=== PATIENT | female | born 1950 | race Caucasian/White ===

== ENCOUNTER 2017-07-01 15:49 | Observation (INO) | payer BC, MEDICARE ==
[2017-07-01] MEDS ORDERED: Aspirin 81 mg CHEW TAB* 81 MG TAB.CHEW PO ONE (16:52)
[2017-07-01] MEDS ORDERED: Ondansetron INJ* 2 MG/ML VIAL IV ONE (16:56)
[2017-07-01] MEDS ORDERED: NS 0.9% 1000 ML* 1,000 ML IV SCH (17:00)
[2017-07-01 17:16] LABS: ABS Basophils 0.1 10^3/ul (0-0.2); ABS Eosinophils 0.1 10^3/ul (0-0.6); ABS Lymphocytes 2.4 10^3/ul (1.0-4.8); ABS Monocytes 0.5 10^3/ul (0-0.8); ABS Neutrophils 3.8 10^3/ul (1.5-7.7); ABS Nucleated RBC 0 10^3/ul; Eosinophil % 0.8 % (0-6); Hematocrit 41 % (35-47); Hemoglobin 13.8 g/dl (12.0-16.0); Lymphocyte % 35.3 % (25-47); Mean Corpuscular HGB Conc 34 g/dl (31-36); Mean Corpuscular Hemoglobin 32 pg (27-31); Mean Corpuscular Volume 94 fL (80-97); Mean Platelet Volume 8.7 um3 (7.4-10.4); Nucleated Red Blood Cells % 0; Platelet Count 283 10^3/ul (150-450); Red Blood Count 4.38 10^6/ul (4.0-5.4); Red Cell Distribution Width 13 % (10.5-15); White Blood Count 6.9 10^3/ul (3.5-10.8)
[2017-07-01 17:24] LABS: INR 0.93 (0.77-1.02)
[2017-07-01 17:34] LABS: EGFR Non-African American 75.9 (>60)
--- NOTE | 2017-07-01 18:12 | RAD ---
INDICATION: Chest pain. COMPARISON: There are no prior studies available for comparison. TECHNIQUE: A portable view of the chest was obtained. FINDINGS: The heart is within normal limits in size. The lungs are clear. No pleural effusion is seen. There is a [id number] dorsal lumbar scoliosis convex toward the right in the dorsal region and toward the left in the lumbar region. IMPRESSION: NO EVIDENCE FOR ACUTE DISEASE.
[2017-07-01] MEDS ORDERED: Acetaminophen TAB* 325 MG PO PRN (18:53)
[2017-07-01] MEDS ORDERED: Ondansetron INJ* 2 MG/ML VIAL IV PRN (18:53)
[2017-07-01] MEDS ORDERED: Lidocaine 2% VISCOUS* 15 ML UDC PO ONE (18:57)
[2017-07-01] MEDS ORDERED: Al Hydrox/Mg Hydrox/Simet LIQ* 30 ML UDC PO ONE (18:57)
--- NOTE | 2017-07-01 19:25 | RAD ---
INDICATION: Midsternal chest pain. COMPARISON: There are no prior studies available for comparison. TECHNIQUE: Multiple real-time images of the right upper quadrant were obtained. FINDINGS: The gallbladder appear normal. No gallbladder wall thickening or pericholecystic fluid is present. No intra or extrahepatic ductal distention is present. The common bile duct measured 0.4 cm in diameter. The liver is normal in size without significant focal abnormality. The pancreas is partially obscured by overlying bowel gas. The right kidney is normal in size without evidence for hydronephrosis. IMPRESSION: NEGATIVE EXAM.
--- NOTE | 2017-07-01 19:30 | ED ---
Cristiano Maya Jennifer, scribed for Erich Abraham MD on 07/01/17 at 1647 . HPI Chest Pain - HPI Summary HPI Summary: The patient is a 66 year old female who presents with chest pain that began last night, went away, and then began again at about 14:00 today. The patient reports she thought it was initially indigestion and took Pepto-Bismol for it, which alleviated the symptoms. However, beginning at 14:00 today, the chest pain returned and radiated to her jaw, lasting about 30 minutes. She described the pain was a tightness rated 8/10 at its worst but denies pain in the ED now. She additionally complains of nausea and lightheadedness, as well as syncope and seizure when the IV was put in. The patient adds that she was supposed to see a embossing machine operator helper in a couple of weeks due to issues with her aortic valve and she has a history of on-off heart murmur. She denies ankle pain, as well as using aspirin. - History of Current Complaint Chief Complaint: EDChestPainROMI Time Seen by Provider: 07/01/17 16:35 Hx Obtained From: Patient, Family/Career Portals Teacher - Onset/Duration: Started Hours Ago - about 2-3 hours ago, Still Present Timing: Lasting Minutes - 30 minutes, then decreased Initial Severity: Moderate Current Severity: Mild Pain Intensity: 2 Pain Scale Used: 0-10 Numeric Chest Pain Location: Mid Sternal Chest Pain Radiates: Yes Chest Pain Radiates To:: Jaw Character: Tightness, Other: - Mackey like indigestion Aggravating Factor(s): Nothing Alleviating Factor(s): Nothing Associated Signs and Symptoms: Positive: Other: - chest pain radiating to jaw, nausea, lightheaded, syncope, seizure. NEGATIVE: ankle pain - Allergy/Home Medications Allergies/Adverse Reactions: Allergies Allergy/AdvReac Type Severity Reaction Status Date / Time No Known Allergies Allergy Verified 02/23/16 15:51 Home Medications: Home Medications Calcium Carbonate/Vitamin D3 [Calcium 600 + Vit D Tablet] 1 each PO DAILY [History Confirmed 07/01/17] PMH/Surg Hx/FS Hx/Imm Hx Endocrine/Hematology History: Denies: Hx Diabetes Cardiovascular History: Denies: Hx Hypertension - Cancer History Hx Chemotherapy: No Hx Radiation Therapy: No - Surgical History Surgery Procedure, Year, and Place: Fertility surgery (to open fallopian tubes) over 30 years ago. TUBAL . TONSILECTOMY Infectious Disease History: No Infectious Disease History: Denies: History Other Infectious Disease, Traveled Outside the [place] in Last 30 Days - Family History Known Family History: Positive: Cardiac Disease - Social History Alcohol Use: Occasionally Substance Use Type: Reports: None Smoking Status (MU): Never Smoked Tobacco Review of Systems Positive: Chest Pain Positive: Nausea Musculoskeletal: Negative - ankle pain Neurological: Other - Lightheaded, seizure Positive: Syncope All Other Systems Reviewed And Are Negative: Yes Physical Exam - Summary Physical Exam Summary: General: pale-appearing, no pain distress Skin: warm, color reflects adequate perfusion, dry Head: normal Eyes: EOMI, CLARA ENT: normal Neck: supple, nontender Respiratory: CTA, breath sounds present Cardiovascular: Bradycardic with some PVCs. Abdomen: soft, nontender Bowel: present Musculoskeletal: normal, strength/ROM intact Neurological: normal, sensory/motor intact, A&O x3 Psychological: affect/mood appropriate Triage Information Reviewed: Yes Vital Signs On Initial Exam: Initial Vitals Temp Pulse Resp BP Pulse Ox 99.0 F 52 16 181/77 100 07/01/17 15:51 07/01/17 15:51 07/01/17 15:51 07/01/17 15:51 07/01/17 15:51 Vital Signs Reviewed: Yes Diagnostics - Vital Signs Vital Signs Temp Pulse Resp BP Pulse Ox 07/01/17 15:51 99.0 F 52 16 181/77 100 - Laboratory Lab Results: Lab Results 07/01/17 07/01/17 07/01/17 Range/Units 17:00 17:00 17:00 WBC 6.9 (3.5-10.8) 10^3/ul RBC 4.38 (4.0-5.4) 10^6/ul Hgb 13.8 (12.0-16.0) g/dl Hct 41 (35-47) % MCV 94 (80-97) fL MCH 32 H (27-31) pg MCHC 34 (31-36) g/dl RDW 13 (10.5-15) % Plt Count 283 (150-450) 10^3/ul MPV 8.7 (7.4-10.4) um3 Neut % (Auto) 55.1 (38-83) % Lymph % (Auto) 35.3 (25-47) % [place] % (Auto) 7.6 H (0-7) % Eos % (Auto) 0.8 (0-6) % Baso % (Auto) 1.2 (0-2) % Absolute Neuts (auto) 3.8 (1.5-7.7) 10^3/ul Absolute Lymphs (auto) 2.4 (1.0-4.8) 10^3/ul Absolute Monos (auto) 0.5 (0-0.8) 10^3/ul Absolute Eos (auto) 0.1 (0-0.6) 10^3/ul Absolute Basos (auto) 0.1 (0-0.2) 10^3/ul Absolute Nucleated RBC 0 10^3/ul Nucleated RBC % 0 INR (Anticoag Therapy) (0.77-1.02) APTT (26.0-36.3) seconds D-Dimer, Quantitative (Less Than 230) ng/mL Sodium 140 (139-145) mmol/L Potassium 3.9 (3.5-5.0) mmol/L Chloride 103 (101-111) mmol/L Carbon Dioxide 28 (22-32) mmol/L Anion Gap 9 (2-11) mmol/L BUN 21 (6-24) mg/dL Creatinine 0.76 (0.51-0.95) mg/dL Est GFR ( Amer) 97.6 (>60) Est GFR (Non-Af Amer) 75.9 (>60) BUN/Creatinine Ratio 27.6 H (8-20) Glucose 119 H (70-100) mg/dL Lactic Acid 1.3 (0.5-2.0) mmol/L Calcium 9.8 (8.6-10.3) mg/dL Magnesium 2.2 (1.9-2.7) mg/dL Total Bilirubin 0.50 (0.2-1.0) mg/dL AST 21 (13-39) U/L ALT 17 (7-52) U/L Alkaline Phosphatase 58 (34-104) U/L Total Creatine Kinase 61 (10-223) U/L CK-MB (CK-2) 4.3 (0.6-6.3) ng/mL Troponin I 0.01 (<0.04) ng/mL C-Reactive Protein < 1.00 (< 5.00) mg/L Total Protein 7.2 (6.4-8.9) g/dL Albumin 4.0 (3.2-5.2) g/dL Globulin 3.2 (2-4) g/dL Albumin/Globulin Ratio 1.3 (1-3) Lipase 29 (11.0-82.0) U/L TSH 3.01 (0.34-5.60) mcIU/mL 07/01/17 Range/Units 17:00 WBC (3.5-10.8) 10^3/ul RBC (4.0-5.4) 10^6/ul Hgb (12.0-16.0) g/dl Hct (35-47) % MCV (80-97) fL MCH (27-31) pg MCHC (31-36) g/dl RDW (10.5-15) % Plt Count (150-450) 10^3/ul MPV (7.4-10.4) um3 Neut % (Auto) (38-83) % Lymph % (Auto) (25-47) % [place] % (Auto) (0-7) % Eos % (Auto) (0-6) % Baso % (Auto) (0-2) % Absolute Neuts (auto) (1.5-7.7) 10^3/ul Absolute Lymphs (auto) (1.0-4.8) 10^3/ul Absolute Monos (auto) (0-0.8) 10^3/ul Absolute Eos (auto) (0-0.6) 10^3/ul Absolute Basos (auto) (0-0.2) 10^3/ul Absolute Nucleated RBC 10^3/ul Nucleated RBC % INR (Anticoag Therapy) 0.93 (0.77-1.02) APTT 26.4 (26.0-36.3) seconds D-Dimer, Quantitative < 200 (Less Than 230) ng/mL Sodium (139-145) mmol/L Potassium (3.5-5.0) mmol/L Chloride (101-111) mmol/L Carbon Dioxide (22-32) mmol/L Anion Gap (2-11) mmol/L BUN (6-24) mg/dL Creatinine (0.51-0.95) mg/dL Est GFR ( Amer) (>60) Est GFR (Non-Af Amer) (>60) BUN/Creatinine Ratio (8-20) Glucose (70-100) mg/dL Lactic Acid (0.5-2.0) mmol/L Calcium (8.6-10.3) mg/dL Magnesium (1.9-2.7) mg/dL Total Bilirubin (0.2-1.0) mg/dL AST (13-39) U/L ALT (7-52) U/L Alkaline Phosphatase (34-104) U/L Total Creatine Kinase (10-223) U/L CK-MB (CK-2) (0.6-6.3) ng/mL Troponin I (<0.04) ng/mL C-Reactive Protein (< 5.00) mg/L Total Protein (6.4-8.9) g/dL Albumin (3.2-5.2) g/dL Globulin (2-4) g/dL Albumin/Globulin Ratio (1-3) Lipase (11.0-82.0) U/L TSH (0.34-5.60) mcIU/mL Result Diagrams: 07/01/17 17:00 07/01/17 17:00 Lab Statement: Any lab studies that have been ordered have been reviewed, and results considered in the medical decision making process. - Radiology CXR Xray Interpretation: No Acute Changes - NO EVIDENCE FOR ACUTE DISEASE. Dr. Abraham has reviewed this report. Radiology Interpretation Completed By: Radiologist - EKG 15:53 Cardiac Rate: Bradycardia EKG Rhythm: Sinus Bradycardia - 48 BPM Ectopy: None EKG Interpretation: Minimal ST elevation in anterior leads, no reciprocal changes EKG Comparison: No Significant Change - similar to prior EKG on 02/18/11 Chest Pain Course/Dx - Course Course Of Treatment: ADMIT HOSPITALIST - Diagnoses Provider Diagnoses: Chest pain Discharge - Sign-Out/Discharge Documenting (check all that apply): Discharge - ADMIT HOSPITALIST - Discharge Plan Condition: Stable Disposition: ADMITTED TO [facility] Referrals: Jimbo Conde MD [Primary Care Provider] - Additional Instructions: Follow up with your primary care physician in three days. Return to the emergency department for any new or worsening symptoms. - Billing Disposition and Condition Condition: STABLE [place] [facility] [place] The documentation as recorded by the Cristiano coronado Jennifer accurately reflects the service I personally performed and the decisions made by me, Erich Abraham MD.
--- NOTE | 2017-07-01 21:32 | HP ---
CC: Dr. Conde * HISTORY AND PHYSICAL: DATE OF ADMISSION: 07/01/17 PRIMARY CARE PROVIDER: Dr. Conde. ATTENDING PHYSICIAN WHILE IN THE HOSPITAL: Dr. Reva King * (report dictated by Grayson Carmona NP). CHIEF COMPLAINT: Chest pain radiating into the patient's jaw with associated nausea. HISTORY OF PRESENT ILLNESS: Mrs. Salazar is a 66-year-old female patient who is an avid runner, she runs 5 times a week. She has actually ran 5 miles per day. She came in today. She said around lunch time, she had an episode where she was having discomfort in the epigastric area that radiated up into the chest and into the jaw. She says that the pain was severe. 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 She said she ran 5 miles this morning and she runs 5 times a week and she never has chest pain or shortness of breath or has any chest heaviness or discomfort. She says that this discomfort today, she did have some nausea. She was concerned because it started going into the jaw. She was concerned it could be related to heart and so she decided to come into the ER. She said she has never had symptoms like this before and says that she exerts herself pretty routinely. She denies any recent fevers or chills. No sore throat or cough recently. No vomiting or diarrhea. No abdominal discomfort. Because of the chest discomfort, we were asked to evaluate for admission. PAST MEDICAL HISTORY: Significant for bicuspid aortic valve. PAST SURGICAL HISTORY: She has had infertility surgeries. HOME MEDICATIONS: Include calcium with vitamin D 1 tablet daily. ALLERGIES TO MEDICATIONS: Include no known drug allergies. FAMILY HISTORY: Her mother is still alive at age 92 and is healthy. She does have a valvular heart disease. The patient is unsure of what type of disease. Father at the age of 89. SOCIAL HISTORY: She does not smoke, does not drink. She exercises pretty routinely. Surrogate decision maker is her . REVIEW OF SYSTEMS: There is no documented fever. She denied having any significant weight change. There was no double vision. There is no ear discharge. She denied having any rhinorrhea. No sore throat. No thyroid enlargement. Chest pain per my HPI. There was no orthopnea. No shortness of breath. No abdominal pain. There was nausea, but no vomiting. No dysuria. No frequency. There was no seizure. No loss of consciousness. No pruritus. Review of 14 systems completed, all others negative. PHYSICAL EXAMINATION GENERAL: At this time, Mrs. Salazar is a 66-year-old female patient. She appears to be well nourished, well developed. She is sitting in the ED stretcher. She does not appear to be in any acute distress. VITAL SIGNS: Blood pressure initially 181/77, pulse of 52, respirations 16, O2 sat of 100%, temperature 99.0. Last blood pressure was noted to be 127/69. HEENT: Head: Atraumatic, normocephalic. Eyes: EOMs are intact. Sclerae are anicteric and not pale. Throat: Oral mucosa appears to be moist. No oropharyngeal erythema. NECK: Supple. LUNGS: Clear to auscultation bilaterally. No wheezes, rales, or rhonchi. HEART: Sounds S1, S2. Regular rate and rhythm. No murmurs, rubs, or gallops. ABDOMEN: Soft, flat, nontender. Bowel sounds were present. EXTREMITIES: Pulses are 2+ throughout. She had no peripheral edema. She is moving all 4 extremities with 5/5 strength. NEUROLOGIC: The patient is awake and alert. She is oriented x3. Tongue midline. Crisis Clinician were equal. No gross focal deficits. SKIN: Intact. DIAGNOSTIC STUDIES/LAB DATA: WBC of 6.9, RBC of 4.38, hemoglobin of 13.8, hematocrit of 41, platelet count of 283. INR of 0.93. D-dimer less than 200. PTT 26.4. Sodium 140, potassium 3.9, chloride of 103, bicarb 28, BUN 21, creatinine 0.76, glucose 119, lactate 1.3, calcium 9.8, total mag was 2.2. Total bili 0.5, AST 21, ALT 17, alk phos 58. CK 61, CK-MB 4.3. Troponin 0.01. CRP less than 1. Albumin of 4. TSH of 3.01 and lipase of 29. I did have a chest x-ray obtain today, showed no evidence for acute disease. EKG shows a sinus bradycardia rate of 48. No ST elevations or T-wave inversions were noted. Old medical records were reviewed. ASSESSMENT AND PLAN: Mrs. Salazar is a 66-year-old female patient coming into the ED today with complaints of chest discomfort and we were asked to evaluate for admission. She will be admitted under observation status for: 1. Chest pain. She is low risk; however, her story is concerning with the nausea associated with this, the pain going up into her chest. It was nonexertional. It is reassuring that she is able to run 5 miles and does not get chest pain. I do think though that she is wanted to have 2 more troponins minimally. In addition to this EKG in the morning along with a stress test in the morning, I did start her on a baby aspirin and we will continue to follow. 2. History of vasovagal syncope. The patient does have episodes where she does particularly withdrawing blood and this is well documented with her that she does become faint. She gets presyncope, so we will try to minimize blood draws, but I do think that she needs minimally 2 more troponins. We will continue to follow and she will be placed on telemetry. 3. Bicuspid aortic valve. Follow with her PCP and she has Cardiology followup already scheduled. Echo was just done. We will try to get those records. 4. Code status: Full code. 5. Fluids, electrolytes, and nutrition: Heart healthy diet and n.p.o. after midnight for stress test in the morning. 6. DVT prophylaxis. SCDs have been ordered. TIME SPENT: On admission was 60 minutes, greater than half of the time was spent [id number] with the patient obtaining my history and physical, other half the time spent going over the plan of care with the patient and implementing the plan of care. I did discuss the plan of care with my attending , Dr. King; she is in agreement. GRAYSON CARMONA, FORREST [id number]/[facility] [place] #: [id number] MELISSA
[2017-07-02 06:12] LABS: ABS Basophils 0 10^3/ul (0-0.2); ABS Eosinophils 0.1 10^3/ul (0-0.6); ABS Lymphocytes 1.7 10^3/ul (1.0-4.8); ABS Monocytes 0.5 10^3/ul (0-0.8); ABS Neutrophils 3.8 10^3/ul (1.5-7.7); ABS Nucleated RBC 0 10^3/ul; Eosinophil % 1.1 % (0-6); Hematocrit 38 % (35-47); Hemoglobin 12.8 g/dl (12.0-16.0); Mean Corpuscular HGB Conc 34 g/dl (31-36); Mean Corpuscular Hemoglobin 32 pg (27-31); Mean Corpuscular Volume 93 fL (80-97); Mean Platelet Volume 8.6 um3 (7.4-10.4); Nucleated Red Blood Cells % 0; Platelet Count 268 10^3/ul (150-450); Red Blood Count 4.02 10^6/ul (4.0-5.4); Red Cell Distribution Width 13 % (10.5-15); White Blood Count 6.2 10^3/ul (3.5-10.8)
[2017-07-02 06:29] LABS: EGFR Non-African American 78.3 (>60)
[2017-07-02] MEDS ORDERED: Aspirin 81 mg CHEW TAB* 81 MG TAB.CHEW PO SCH (09:00)
[2017-07-02 12:03] VITALS: BP 125/68
--- NOTE | 2017-07-02 13:50 | RAD ---
HISTORY: Chest pain COMPARISONS: None TECHNIQUE: A 1 day stress/rest myocardial perfusion study was performed, with exercise stress. The exercise portion was performed using the Marlon protocol, for a total METs of 11.1. The stress portion was monitored by Dr. Ivan. Gated SPECT imaging was performed, with CT-based attenuation correction DOSE: Stress: Technetium 99m tetrofosmin, 25.43 millicuries, injected at 10:47 AM on July 02, 2017 Rest: Technetium 99m tetrofosmin, 10.3 millicuries, injected at 7:05 AM on July 02, 2017 Pharmacologic agent: None FINDINGS: CARDIAC MONITORING: Peak heart rate of 139 bpm, 86% of predicted EF: 76% TID: 1.18 MOTION: Normal motion, with normal wall thickening. PERFUSION: There are no fixed or reversible perfusion defects. OTHER: None IMPRESSION: NO FIXED OR REVERSIBLE PERFUSION DEFECTS. ASSESSMENT: LOW RISK. Based on imaging criteria from ACC/AHA 2002. Guideline Update for the Management of Patient's with Chronic Stable Angina, table 23. Noninvasive Risk Stratification. CPT II Codes: 2261I8S
--- NOTE | 2017-07-03 00:09 | DS ---
CC: Dr. Conde* DISCHARGE SUMMARY: DATE OF ADMISSION: 07/01/17 DATE OF DISCHARGE: 07/02/17 ATTENDING PHYSICIAN: Kelly Romeo MD* (dictated by Heena Santiago NP) PRIMARY CARE PROVIDER: Dr. Jimbo Conde. PRIMARY DIAGNOSIS: Chest pain. SECONDARY DIAGNOSIS: Bicuspid aortic valve. STUDIES COMPLETED WHILE IN THE HOSPITAL: She had a chest x-ray on 07/01/17, no evidence of acute disease was radiologist's impression. She had a gallbladder ultrasound on 07/01/17. Radiologist's impression was negative exam. She had a nuclear stress test on 07/02/17. Assessment was low risk based on imaging criteria from ACC and AHA 2002 guidelines updated for management of the patients with the chronic stable angina, Table 23; noninvasive risk stratification. Impression: There was no fix or reversible perfusion deficit. EF was 76%. Peak heart rate was 139, 86% of predictive max heart rate. DISCHARGE MEDICATIONS: No new home medications. Continued home medications: 1. Calcium. 2. Vitamin D. HISTORY OF PRESENT ILLNESS AND HOSPITAL COURSE: Ms. Martin Jesus is a 66-year- old female who is an avid runner, she runs 5 times a week approximately 5 miles per day. Around lunch time on 07/01/17, she developed an episode of having discomfort in her epigastric area radiating to her chest and jaw. She states that the pain was severe. 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 She said that she ran 5 miles that morning with no issues. Denied any chest pain or shortness of breath or any heaviness or discomfort. She states that as a discomfort on her day of admission she did have some nausea and she was concerned because it was going to her jaw. Due to her concern to be related to heart, she decided to come to the emergency room for further evaluation. While in the emergency room, she had routine lab work drawn and serial troponins and EKG. Her EKG showed sinus bradycardia at a rate of 48. Laboratory tests were within normal limits. Her troponin was 0.01 and 0.00 and 0.01. She did have a lipid profile drawn. Her triglycerides were 74, cholesterol 146, LDL was 75, and HDL was 56.3. During her hospitalization, she had a nuclear stress test which was read as low risk. There was no fixed deficit or any reversible deficits noted. She did have an EF of 76%. She did not have any chest pain during her stress test. She has not had any chest pain during this hospitalization. At this time, Ms. Martin Jesus is stable for discharge home. Ms. Martin Jesus is stable for discharge home today. REVIEW OF SYSTEMS: She denies any chest pain. Denies any nausea, vomiting or diarrhea. Denies any abdominal pain. Denies any shortness of breath, cough, or congestion. She denies any fever or chills. Denies any dysuria or hematuria. PHYSICAL EXAMINATION: Vital Signs: Were as follows; temperature was 98.1, pulse was 53, respirations 16, O2 saturation 100% on room air, blood pressure 125/68. General: Ms. Martin Jesus is sitting in the bed. She is in no acute distress. Neuro: She is alert and oriented x3. She is able to move all extremities. Lungs: Clear to auscultation bilaterally. No use of accessory muscles. She has good aeration. Heart: S1, S2. There is no murmur, rubs, or gallops. Abdomen: Soft and nontender. Bowel sounds are active x4. Extremities: There is no cyanosis or edema. Skin: Intact. DISCHARGE PLAN: Ms. Martin Jesus will be discharged back home. Activity as tolerated. She may resume her regular diet. 1. Chest pain. This is noncardiac chest pain, I suspect this may be related to esophageal spasm or acid reflux. Her gallbladder ultrasound was within normal limits. There were no gallstones evident. Her nuclear stress test was within normal limits. I recommend that she follow up with her primary care provider for further evaluation of noncardiac chest pain. I did explain to her in the event that she develops chest pain, shortness of breath, nausea, vomiting , diaphoresis that she should not ignore the pain that she should return to the emergency room for further evaluation. She verbalized understanding. 2. She should follow up with her primary care physician in 4 to 7 days. 3. The patient was instructed to return to emergency room for any chest pain, shortness of breath, or any worsening of her symptoms or any other concerning medical conditions. This is a summarization of her hospitalization. For further details, please see the entire medical record. TIME SPENT: Time spent on this discharge was approximately 60 minutes, greater than half that time was spent with the patient discussing discharge plans and instructions. CONDITION ON DISCHARGE: Stable. This discharge plan was discussed with my attending Dr. Kelly Romeo and she is in agreement with my plan. HEENA SANTIAGO, SUPPORT STAFF [id number]/[facility] #: [id number] MELISSA
== END 2017-07-02 15:54 | disposition home or self-care (01) ==
LOC: ED 15:49 → MEDTELE 18:51
PROVIDERS: ADMIT Internal Medicine; ATTEND Internal Medicine
DX: R07.9 Chest pain, unspecified (principal); Q23.1 Congenital insufficiency of aortic valve; Z79.899 Other long term (current) drug therapy; R11.0 Nausea; R00.1 Bradycardia, unspecified; R94.31 Abnormal electrocardiogram [ECG] [EKG]
CPT/HCPCS: 36415; 71045; 76705; 78452; 80048; 80053; 80061; 82550; 82553; 83036; 83605; 83690; 83735; 83880; 84443; 84484; 85025; 85379; 85610; 85730; 86140; 93005; 93017; 94760; 96361; 96374; 99284; A9270-GY; A9502; G0378; J2405